=== PATIENT | male | born 1945 | race Asian ===

== ENCOUNTER 2018-05-15 19:55 | Emergency (ER) | payer MEDICARE, OTHER ==
[~2018-05-15] VITALS: Ht 170.2 cm; Wt 90.7 kg
[2018-05-15 20:23] VITALS: BP 148/72
== END 2018-05-15 23:12 | disposition home or self-care (01) ==
LOC: ER 19:55
DX: M79.10 Myalgia, unspecified site (principal); M54.2 Cervicalgia; E11.9 Type 2 diabetes mellitus without complications; E78.5 Hyperlipidemia, unspecified; I10 Essential (primary) hypertension; V49.59XA Passenger injured in collision with other motor vehicles in traffic accident, initial encounter; Y93.89 Activity, other specified; Y99.8 Other external cause status; Y92.89 Other specified places as the place of occurrence of the external cause
CPT/HCPCS: 70450; 72125; 72128; 82962